=== PATIENT | female | born 2000 | race Caucasian/White ===

== ENCOUNTER 2024-05-06 20:11 | Inpatient (IN) | payer SELFPAY ==
[~2024-05-06] VITALS: Ht 165.1 cm; Wt 93.0 kg
[2024-05-06 20:30] VITALS: O2SAT 100
[2024-05-06 20:57] LABS: HEMOGLOBIN. 16.1 g/dL (12.0-16.0); MEAN CORPUSCULAR HGB CONC 34.2 g/dL (31.0-37.0); MEAN CORPUSCULAR VOLUME 93.3 fL (81.0-99.0); MEAN PLATELET VOLUME 8.6 fl (7.4-10.4); PLATELET 231 x1000/uL (130-400); RED BLOOD CELL COUNT 5.04 mill/uL (4.2-5.4); RED CELL DISTRIBUTION WIDTH 12.9 % (11.6-14.6); WHITE BLOOD COUNT 12.9 x1000/uL (4.5-11.0)
[2024-05-06 20:58] LABS: DIFFERENTIAL COMMENT 1
[2024-05-06 21:02] LABS: CHLORIDE 104 mEq/L (98-107); POTASSIUM 3.9 mEq/L (3.5-5.1); SODIUM 139 mEq/L (136-145)
[2024-05-06 21:03] LABS: CALCIUM 9.9 mg/dL (8.7-10.4); CARBON DIOXIDE 28 mEq/L (21-32)
[2024-05-06 21:07] LABS: CREATININE 0.8 mg/dL (0.6-1.0)
[2024-05-06 21:08] LABS: GLUCOSE 134 mg/dL (70-105); UREA NITROGEN BLOOD 6 mg/dL (9-23)
[2024-05-06 21:09] LABS: ALANINE AMINOTRANSFERASE 28 IU/L (10-49)
[2024-05-06 21:10] LABS: ALBUMIN 4.6 g/dL (3.2-4.8); ASPARTATE AMINOTRANSFERASE 19 IU/L (<34); BILIRUBIN DIRECT 0.2 mg/dL (<=3.0); BILIRUBIN TOTAL 0.8 mg/dL (0.1-1.0)
[2024-05-06 21:48] LABS: CLARITY URINE CLOUDY (CLEAR); COLOR URINE DARK YELLOW (YELLOW); GLUCOSE URINE NEGATIVE (NEGATIVE); KETONES URINE 3+ (NEGATIVE); LEUKOCYTE ESTERASE URINE TRACE (NEGATIVE); NITRITE URINE NEGATIVE (NEGATIVE); OCCULT BLOOD URINE 1+ (NEGATIVE); PROTEIN URINE 2+ (NEGATIVE); SPECIFIC GRAVITY URINE 1.025 (1.005-1.030)
[2024-05-06 22:16] LABS: PLATELET ESTIMATE NORMAL
[2024-05-06 22:17] LABS: BACTERIA URINE 3+; SQUAMOUS EPITHELIAL CELL URINE 2+ /lpf (RARE/1+)
[2024-05-06 22:18] LABS: WBC URINE 0-2 /hpf (0-2)
[2024-05-06] MEDS ORDERED: CLONIDINE 0.1MG TABLET PO PRN (23:45)
[2024-05-06] MEDS ORDERED: IPRATROPIUM/ALBUTEROL 0.5-3(2.5)MG/3ML NEB HHN PRN (23:45)
[2024-05-06] MEDS ORDERED: DEXTROSE 50% WATER 50ML SYRINGE IV PRN (23:45)
[2024-05-07] VITALS (8 sets, daily range): BP systolic 98–126; BP diastolic 54–69; PULSE 48–62; RESP 18–53; TEMP 36.33624–36.72516; O2SAT 97–100
[2024-05-07] MEDS: SODIUM CHLORIDE 0.9% 1,000 ML IV SCH (01:07)
[2024-05-07] MEDS: KETOROLAC 15MG/ML VIAL IV PRN (01:07)
[2024-05-07] MEDS: ONDANSETRON HCL 4MG/2ML INJ IV PRN (01:07)
[2024-05-07] MEDS ORDERED: ALBU90AE3 INH (01:27)
[2024-05-07] MEDS ORDERED: PIPERACILLIN/TAZO 3.375G/50ML 50 ML IV SCH (06:00)
[2024-05-07] MEDS: PIPERACILLIN/TAZO 3.375G/50ML 50 ML IV SCH (06:18)
[2024-05-07] MEDS: BLOOD SUGAR DIAGNOSTIC STRIP TEST SCH (06:21)
[2024-05-07 08:18] LABS: CARBON DIOXIDE 28 mEq/L (21-32); CHLORIDE 105 mEq/L (98-107); POTASSIUM 3.7 mEq/L (3.5-5.1); SODIUM 140 mEq/L (136-145)
[2024-05-07 08:19] LABS: CALCIUM 9.3 mg/dL (8.7-10.4)
[2024-05-07 08:23] LABS: CREATININE 0.6 mg/dL (0.6-1.0); GLUCOSE 100 mg/dL (70-105)
[2024-05-07 08:24] LABS: TRIGLYCERIDE 100 mg/dL (0-150); UREA NITROGEN BLOOD 5 mg/dL (9-23)
[2024-05-07 08:25] LABS: LDL CHOLESTEROL 92 mg/dL (5-100)
[2024-05-07 08:26] LABS: CHOLESTEROL 158 mg/dL (<200); HDL CHOLESTEROL 53 mg/dL (>65)
[2024-05-07 08:27] LABS: BASOPHILS % 0.5 % (0.0-2.0); EOSINOPHILS % 1.5 % (0.0-5.0); HEMATOCRIT. 41.8 % (36.0-48.0); HEMOGLOBIN. 14.1 g/dL (12.0-16.0); LYMPHOCYTES % 20.3 % (20.0-50.0); MEAN CORPUSCULAR HEMOGLOBIN 31.5 pg (28.0-32.0); MEAN CORPUSCULAR HGB CONC 33.8 g/dL (31.0-37.0); MEAN CORPUSCULAR VOLUME 93.2 fL (81.0-99.0); MONOCYTES % 9.7 % (2.0-8.0); PLATELET 221 x1000/uL (130-400); RED BLOOD CELL COUNT 4.48 mill/uL (4.2-5.4); RED CELL DISTRIBUTION WIDTH 12.7 % (11.6-14.6); WHITE BLOOD COUNT 11.2 x1000/uL (4.5-11.0)
[2024-05-07 08:41] LABS: HEPATITIS B SURFACE ANTIGEN NEGATIVE (Negative)
[2024-05-07 09:02] LABS: HEPATITIS C AB NON REACTIVE (Neg) (Negative)
[2024-05-07] MEDS: FAMOTIDINE 20MG/2ML VIAL IV SCH (09:34)
[2024-05-07] MEDS: DEXT 5%/0.45% NACL 1000ML 1,000 ML IV SCH (12:15)
[2024-05-08] VITALS: BP 111/77; PULSE 81; RESP 19; TEMP 36.44736; O2SAT 98
[2024-05-08 04:00] VITALS: BP 97/62; PULSE 55; RESP 20; TEMP 36.3918
[2024-05-08] MEDS: MORPHINE SULFATE 2 MG/ML INJ (NOT FOR IM USE) IV NR (05:42)
[2024-05-08 06:55] LABS: CARBON DIOXIDE 29 mEq/L (21-32); CHLORIDE 106 mEq/L (98-107); POTASSIUM 3.4 mEq/L (3.5-5.1); SODIUM 140 mEq/L (136-145)
[2024-05-08 07:01] LABS: GLUCOSE 99 mg/dL (70-105); UREA NITROGEN BLOOD 6 mg/dL (9-23)
[2024-05-08 07:03] LABS: PHOSPHORUS 3.5 mg/dL (2.5-4.9)
[2024-05-08 08:00] VITALS: BP 96/56; PULSE 52; RESP 19; TEMP 36.28068; O2SAT 100
[2024-05-08 08:10] LABS: BASOPHILS % 0.6 % (0.0-2.0); EOSINOPHILS % 6.5 % (0.0-5.0); HEMATOCRIT. 40.5 % (36.0-48.0); HEMOGLOBIN. 13.6 g/dL (12.0-16.0); MEAN CORPUSCULAR HEMOGLOBIN 31.5 pg (28.0-32.0); MEAN CORPUSCULAR HGB CONC 33.5 g/dL (31.0-37.0); MEAN PLATELET VOLUME 9.5 fl (7.4-10.4); NEUTROPHILS % 62.9 % (40.0-76.0); PLATELET 229 x1000/uL (130-400); RED BLOOD CELL COUNT 4.31 mill/uL (4.2-5.4)
[2024-05-08 12:00] VITALS: BP 99/60; PULSE 60; RESP 19; TEMP 36.28068; O2SAT 100
[2024-05-08] MEDS ORDERED: TRAM-534 MT (12:38)
[2024-05-08] MEDS ORDERED: ONDA-239 PO (12:38)
[2024-05-08] MEDS: HYDROCODONE/ACETAMINOPHEN 5/325MG TABLET PO SCH (14:14)
[2024-05-08 16:00] VITALS: BP 89/52; PULSE 57; RESP 19; TEMP 36.50292; O2SAT 98
[2024-05-08] MEDS: POTASSIUM CHLORIDE 20MEQ TABLET SR PO NR (16:55)
[2024-05-08] MEDS ORDERED: FAMOTIDINE 20MG/2ML VIAL IV SCH (21:00)
== END 2024-05-08 19:50 | disposition home or self-care (01) ==
LOC: ER 20:11 → 6EST 23:08
PROVIDERS: ADMIT Internal Medicine; ATTEND Internal Medicine
DX: K80.00 Calculus of gallbladder with acute cholecystitis without obstruction (principal); E66.9 Obesity, unspecified; R73.9 Hyperglycemia, unspecified; J45.909 Unspecified asthma, uncomplicated; Z68.34 Body mass index [BMI] 34.0-34.9, adult; Z79.899 Other long term (current) drug therapy
CPT/HCPCS: 36415; 76705; 80048; 80061; 80076; 81003; 82962; 83036; 83735; 84100; 85025; 86705; 87340; 99285; C1893; J1885; J2270; J2405; J2543; J3490